=== PATIENT | female | born 1945 | race Caucasian/White ===

== ENCOUNTER 2019-03-15 13:24 | Emergency (ER) | payer OTHER ==
[~2019-03-15] VITALS: Ht 160 cm; Wt 54.4 kg
[2019-03-15] MEDS ORDERED: DUPIXENT200 MG/1.1 (14:05)
[2019-03-15] MEDS ORDERED: PREVASTATIN (14:06)
== END 2019-03-15 16:12 | disposition home or self-care (01) ==
LOC: ER 13:24
DX: S30.0XXA Contusion of lower back and pelvis, initial encounter (principal); W18.09XA Striking against other object with subsequent fall, initial encounter; Y93.89 Activity, other specified; Y92.511 Restaurant or cafe as the place of occurrence of the external cause; Y99.8 Other external cause status